=== PATIENT | male | born 1945 | race Caucasian/White ===

== ENCOUNTER 2020-07-20 09:19 | Emergency (ER) | payer MEDICARE, OTHER ==
[~2020-07-20 09:19] MED LIST: ASPIRIN CHEWABL81 MG PO; CARDIZEM CD360 MG PO; ELIQUIS 5 MG TAB5 MG PO; FISH OIL 1,2001 EACH PO; LISINOPRIL-HCT1 EACH PO; NIACIN CR 500500 MG PO; SUPER B-50 COM1 EACH PO
[2020-07-20 10:15] LABS: HEMOGLOBIN 15.9 gm/dl (14.0-17.5); RED BLOOD COUNT 4.96 M/UL (4.20-5.50); WHITE BLOOD COUNT 6.4 K/UL (4.5-11.0)
[2020-07-20 10:41] LABS: BUN/CREATININE RATIO 17 (0-10)
[2020-07-20] MEDS ORDERED: TORADOL 10 MG T10 MG PO (12:33)
[2020-07-20] MEDS ORDERED: FLOMAX0.4 MG PO (12:33)
== END 2020-07-20 12:41 | disposition home or self-care (01) ==
LOC: ER1 09:19
PROVIDERS: Family Medicine
DX: N34.2 Other urethritis (principal); N13.2 Hydronephrosis with renal and ureteral calculous obstruction; I10 Essential (primary) hypertension; Z87.442 Personal history of urinary calculi
CPT/HCPCS: 80053; 81001; 85025; 99284

== ENCOUNTER → 2021-11-02 | Outpatient (CLI) | payer MEDICARE ==
[~2021-11-02] MED LIST changes: +FLOMAX0.4 MG PO; +TORADOL 10 MG T10 MG PO
== END ==
LOC: KOH-I 08:51
DX: G95.9 Disease of spinal cord, unspecified (principal); M47.812 Spondylosis without myelopathy or radiculopathy, cervical region
CPT/HCPCS: 72040

== ENCOUNTER → 2021-12-21 | Outpatient (CLI) | payer MEDICARE | LOC: HEART 5 07:49 | DX: Z01.810 Encounter for preprocedural cardiovascular examination (principal); I48.92 Unspecified atrial flutter; R00.1 Bradycardia, unspecified; I27.20 Pulmonary hypertension, unspecified | CPT/HCPCS: 78452; A9502; J2785 ==